=== PATIENT | male | born 1985 | race Caucasian/White ===

== ENCOUNTER 2021-05-16 18:36 | Emergency (ER) | payer BC, SELFPAY ==
[~2021-05-16] VITALS: Ht 177.8 cm; Wt 86.2 kg
[2021-05-16 18:58] VITALS: BP_SYST 107
[2021-05-16] MEDS ORDERED: HYDR200T80 PO (20:38)
[2021-05-16] MEDS ORDERED: ZINC50TA69 PO (20:38)
[2021-05-16 20:55] VITALS: BP_SYST 110
== END 2021-05-16 20:55 | disposition home or self-care (01) ==
LOC: SED 18:36
DX: U07.1 COVID-19 (principal)
CPT/HCPCS: 36415; 99283

== ENCOUNTER 2023-03-17 18:54 | Emergency (ER) | payer BC, OTHER ==
[~2023-03-17] VITALS: Ht 177.8 cm; Wt 92.1 kg
[~2023-03-17 18:54] MED LIST: HYDR200T80 PO; ZINC50TA69 PO
[2023-03-17 19:15] VITALS: BP_SYST 133
[2023-03-17 22:30] LABS: BASOPHILS # (AUTO) 0.1 K/uL (0.0-0.2); BASOPHILS % (AUTO) 0.9 % (0.0-2.0); EOSINOPHILS # (AUTO) 0.5 K/uL (0.0-0.4); EOSINOPHILS % (AUTO) 5.6 % (0.0-4.0); HEMATOCRIT 44.3 % (36-54); HEMOGLOBIN 14.9 g/dL (14.0-18.0); LYMPHOCYTES # (AUTO) 3.3 K/uL (1.0-5.5); LYMPHOCYTES % (AUTO) 33.9 % (20.5-51.5); MEAN CORPUSCULAR HEMOGLOBIN 31 pg (27-31); MEAN CORPUSCULAR HGB CONC 34 % (32-36); MEAN CORPUSCULAR VOLUME 92 fL (79.0-98.0); MONOCYTES % (AUTO) 10.6 % (1.7-9.3); NEUTROPHILS # (AUTO) 4.7 K/uL (1.8-7.7); PLATELET COUNT (AUTO) 307 K/uL (130-430); RED BLOOD CELL COUNT(AUTO) 4.82 MIL/uL (4.2-6.2); RED CELL DISTRIBUTION WIDTH 13.7 % (9.0-15.0); WHITE BLOOD COUNT (AUTO) 9.6 K/uL (4.8-10.8)
[2023-03-17 22:45] LABS: CALCIUM 8.3 mg/dL (8.4-11.0); CREATININE 0.92 mg/dL (0.55-1.30)
[2023-03-17 22:50] LABS: ALBUMIN 3.3 g/dL (3.4-4.8); TOTAL BILIRUBIN 0.3 mg/dL (0.0-1.0)
[2023-03-17] MEDS ORDERED: PANT20TA2 PO (23:59)
[2023-03-18] MEDS ORDERED: KETOROLAC TROMETHAMINE 30 MG VIAL IVP ONE
[2023-03-18 00:58] LABS: BILIRUBIN,URINE NEGATIVE (NEGATIVE); BLOOD, URINE NEGATIVE (NEGATIVE); CLARITY/URINE CLEAR (CLEAR); COLOR,URINE YELLOW (YELLOW); GLUCOSE,URINE NEGATIVE (NEGATIVE); KETONES,URINE NEGATIVE (NEGATIVE); LEUKOCYTE ESTERASE ,URINE NEGATIVE (NEGATIVE); NITRITE, URINE NEGATIVE (NEGATIVE); PROTEIN URINE NEGATIVE (NEGATIVE); UROBILINOGEN,URINE 0.2 (0.2-1.0)
[2023-03-18 02:25] VITALS: BP_SYST 132
== END 2023-03-18 02:30 | disposition home or self-care (01) ==
LOC: SED 18:54
DX: R10.11 Right upper quadrant pain (principal); R10.31 Right lower quadrant pain; R11.2 Nausea with vomiting, unspecified; Z79.899 Other long term (current) drug therapy
CPT/HCPCS: 99285; 74176; 80053; 83690; 85025; 36415; 76376; 81003; 96372; J1885